=== PATIENT | male | born 1980 | race Caucasian/White ===

== ENCOUNTER 2016-10-21 22:43 | Emergency (ER) | payer OTHER ==
[~2016-10-21] VITALS: Ht 170.2 cm; Wt 76.7 kg
[~2016-10-21 22:43] MED LIST: AUGMENTIN875 MG PO; FLEXERIL10 MG PO; INDOMETHACIN25 MG PO; MUCINEX D ER T1 EACH PO; NAPROSYN500 MG PO; NAPROXEN500 MG PO; NASACORT10.8 ML BOTH NARES; NOHOMEMEDS; PREDNISONE20 MG PO; PSEUDOEPHEDRINE30 MG PO; TESSALON PERLE100 MG PO; ULTRAM50 MG PO; VALIUM5 MG PO
[2016-10-21] MEDS ORDERED: NORCO 5/3251 TABLET PO (23:45)
[2016-10-21 23:59] VITALS: BP 115/80
== END 2016-10-22 | disposition home or self-care (01) ==
LOC: EME 22:43 → EXP 22:43
DX: M79.672 Pain in left foot (principal); M77.32 Calcaneal spur, left foot; F17.200 Nicotine dependence, unspecified, uncomplicated
CPT/HCPCS: 99281; 99283

== ENCOUNTER 2016-11-22 20:57 | Emergency (ER) | payer OTHER ==
[~2016-11-22] VITALS: Ht 172.7 cm; Wt 75.7 kg
[~2016-11-22 20:57] MED LIST changes: +NORCO 5/3251 TABLET PO
[2016-11-22 21:25] VITALS: BP 102/65
== END 2016-11-22 23:17 | disposition left against medical advice (07) ==
LOC: EME 20:57
DX: M79.672 Pain in left foot (principal); Z53.21 Procedure and treatment not carried out due to patient leaving prior to being seen by health care provider